=== PATIENT | male | born 1955 | race Caucasian/White ===

== ENCOUNTER 2023-11-02 22:46 | Emergency (ER) | payer OTHER ==
[2023-11-02 22:50] VITALS: BP_SYST 174; PULSE 89; RESP 20; TEMP 98.5; O2SAT 99
[2023-11-02] MEDS ORDERED: DEXTROSE 50% JECT 50 ML DISP.SYRIN IVP ONE (23:15)
[2023-11-02 23:59] LABS: HEMATOCRIT 40.4 % (36-54); HEMOGLOBIN 13.5 g/dL (14.0-18.0); RED BLOOD CELL COUNT(AUTO) 4.53 MIL/uL (4.2-6.2); WHITE BLOOD COUNT (AUTO) 4.3 K/uL (4.8-10.8)
[2023-11-03 00:09] LABS: BASOPHILS # (AUTO) 0.1 K/uL (0.0-0.2); BASOPHILS % (AUTO) 2.7 % (0.0-2.0); EOSINOPHILS # (AUTO) 0.1 K/uL (0.0-0.4); EOSINOPHILS % (AUTO) 1.8 % (0.0-4.0); LYMPHOCYTES # (AUTO) 0.8 K/uL (1.0-5.5); LYMPHOCYTES % (AUTO) 19.1 % (20.5-51.5); MEAN CORPUSCULAR HEMOGLOBIN 30 pg (27-31); MEAN CORPUSCULAR HGB CONC 34 % (32-36); MEAN CORPUSCULAR VOLUME 89 fL (79.0-98.0); MONOCYTES # (AUTO) 0.3 K/uL (0.0-1.0); MONOCYTES % (AUTO) 7.5 % (1.7-9.3); NEUTROPHILS % (AUTO) 68.9 % (40.0-70.0); PLATELET COUNT (AUTO) 223 K/uL (130-430); RED CELL DISTRIBUTION WIDTH 15.1 % (9.0-15.0)
[2023-11-03] MEDS ORDERED: IBUPROFEN 600 MG TABLET PO ONE (00:30)
[2023-11-03] MEDS ORDERED: ACETAMINOPHEN 500 MG TABLET PO ONE (00:30)
[2023-11-03] MEDS ORDERED: FINA-37 PO (00:47)
[2023-11-03] MEDS ORDERED: ARIP5TAB10 PO (00:47)
[2023-11-03] MEDS ORDERED: TAMS-11 PO (00:47)
[2023-11-03] MEDS ORDERED: METF-379 PO (00:47)
[2023-11-03] MEDS ORDERED: LIP80 PO (00:47)
[2023-11-03] MEDS ORDERED: LINA290C PO (00:47)
[2023-11-03] MEDS ORDERED: GLIP10TA21 PO (00:47)
[2023-11-03] MEDS ORDERED: CHOL100035 PO (00:47)
[2023-11-03] MEDS ORDERED: VENL37.55 PO (00:47)
[2023-11-03] MEDS ORDERED: PIOG30TA70 PO (00:47)
[2023-11-03 00:56] LABS: ALBUMIN 3.6 g/dL (3.4-4.8); CALCIUM 8.7 mg/dL (8.4-11.0); CREATININE 0.72 mg/dL (0.55-1.30); POTASSIUM 3.2 mmol/L (3.5-5.1); TOTAL BILIRUBIN 0.2 mg/dL (0.0-1.0); TOTAL PROTEIN, SERUM 7.4 g/dL (6.4-8.3)
[2023-11-03 01:35] LABS: BILIRUBIN,URINE NEGATIVE (NEGATIVE); BLOOD, URINE NEGATIVE (NEGATIVE); CLARITY/URINE CLEAR (CLEAR); COLOR,URINE YELLOW (YELLOW); GLUCOSE,URINE NEGATIVE (NEGATIVE); KETONES,URINE NEGATIVE (NEGATIVE); LEUKOCYTE ESTERASE ,URINE NEGATIVE (NEGATIVE); NITRITE, URINE NEGATIVE (NEGATIVE); PROTEIN URINE NEGATIVE (NEGATIVE); UROBILINOGEN,URINE 0.2 (0.2-1.0)
[2023-11-03 01:50] LABS: INFLUENZA TYPE A Negative (NEGATIVE); INFLUENZA TYPE B NEGATIVE (NEGATIVE)
[2023-11-03 03:06] VITALS: BP_SYST 174; PULSE 89; RESP 20; TEMP 98.5; O2SAT 99
== END 2023-11-03 03:03 | disposition home or self-care (01) ==
LOC: SED 22:46
DX: E11.649 Type 2 diabetes mellitus with hypoglycemia without coma (principal); R53.1 Weakness; Z79.899 Other long term (current) drug therapy; Z20.822 Contact with and (suspected) exposure to COVID-19
CPT/HCPCS: 36415; 71045; 80053; 81001; 81003; 82962; 83605; 85025; 87040; 96374; 99291